=== PATIENT | male | born 1945 | race Two or more races ===

== ENCOUNTER 2018-05-01 20:20 | Inpatient (IN) | payer MEDICARE, MEDICAID ==
[~2018-05-01] VITALS: Ht 172.7 cm; Wt 86.2 kg
[2018-05-01 20:58] LABS: BASOPHILS % 0.2 % (0.0-2.0); EOSINOPHILS % 0.2 % (0.0-5.0); HEMATOCRIT. 48.7 % (42.0-52.0); HEMOGLOBIN. 16.4 g/dL (14.0-18.0); MEAN CORPUSCULAR HEMOGLOBIN 32.2 pg (28.0-32.0); MEAN CORPUSCULAR VOLUME 95.6 fL (80.0-94.0); MEAN PLATELET VOLUME 7.4 fl (7.4-10.4); MONOCYTES % 1.6 % (2.0-8.0); PLATELET 291 x1000/uL (130-400); RED CELL DISTRIBUTION WIDTH 13.3 % (11.6-14.6)
[2018-05-01 21:04] LABS: CHLORIDE 106 mEq/L (98-107)
[2018-05-01 21:05] LABS: INR 1.1; PROTHROMBIN TIME 10.9 sec (9.1-11.1)
[2018-05-01 21:08] LABS: ETHANOL BLOOD < 10 mg/dL
[2018-05-01 21:11] LABS: LDL CHOLESTEROL 138 mg/dL (5-100)
[2018-05-01] MEDS ORDERED: ALTEPLASE IV STA (21:17)
[2018-05-01] MEDS ORDERED: ALTEPLASE 100MG/VIAL IV STA (21:17)
[2018-05-01] MEDS ORDERED: LABETALOL HCL 20MG/4ML CARPUJECT IV ONE (21:30)
[2018-05-01] MEDS ORDERED: LABETALOL 5MG/ML SYR 20 MG/4 ML SYRINGE IV ONE (21:30)
[2018-05-01 21:59] LABS: CLARITY URINE CLEAR (CLEAR); COLOR URINE YELLOW (YELLOW); KETONES URINE NEGATIVE (NEGATIVE); LEUKOCYTE ESTERASE URINE NEGATIVE (NEGATIVE); NITRITE URINE NEGATIVE (NEGATIVE); OCCULT BLOOD URINE 3+ (NEGATIVE); PH URINE 7.5 (4.5-8.0); PROTEIN URINE 3+ (NEGATIVE); SPECIFIC GRAVITY URINE 1.011 (1.005-1.030); UROBILINOGEN URINE 0.2 E.U./dL (0.2-1.0)
[2018-05-01 22:07] LABS: *AMPHETAMINES SCREEN URINE NEGATIVE (NEGATIVE); *BARBITURATES SCREEN URINE NEGATIVE (NEGATIVE)
[2018-05-01 22:08] LABS: *BENZODIAZEPINES SCREEN URINE NEGATIVE (NEGATIVE); *COCAINE SCREEN URINE NEGATIVE (NEGATIVE); CANNABINOID URINE SCREEN NEGATIVE (NEGATIVE); METHADONE URINE SCREEN NEGATIVE (NEGATIVE); OPIATES URINE SCREEN NEGATIVE (NEGATIVE); PHENCYCLIDINE URINE SCREEN NEGATIVE (NEGATIVE)
[2018-05-01] MEDS ORDERED: HYDRALAZINE 20MG/ML VIAL IV PRN (22:45)
[2018-05-01] MEDS ORDERED: CLONIDINE 0.1MG TABLET PO PRN (22:45)
[2018-05-01] MEDS ORDERED: ONDANSETRON HCL 4MG/2ML INJ IV PRN (22:45)
[2018-05-01] MEDS ORDERED: NITROGLYCERIN 0.4MG TABLET SL SL PRN (22:45)
[2018-05-01] MEDS ORDERED: ACETAMINOPHEN 650MG SUPP PR PRN (22:45)
[2018-05-01] MEDS ORDERED: NA PHOS,M-B/NA PHOS,DI-BA ENEMA 118ML PR PRN (22:45)
[2018-05-01] MEDS ORDERED: GUAIFENESIN 200MG/10ML SUGAR FREE UDC PO PRN (22:45)
[2018-05-01] MEDS ORDERED: MAGNESIUM/ALUMINUM HYDROXIDE/SIMETHICONE 30ML UDC PO PRN (22:45)
[2018-05-01] MEDS ORDERED: IPRATROPIUM/ALBUTEROL 0.5-3(2.5)MG/3ML NEB INH PRN (22:45)
[2018-05-01] MEDS ORDERED: IOHEXOL-350 100 ML BOTTLE ONE (23:07)
[2018-05-01] MEDS: DEXT 5%/LACTATED RINGERS 1,000 ML IV SCH (23:47)
[2018-05-02] VITALS (54 sets, daily range): BP systolic 122–177; BP diastolic 68–119
[2018-05-02] MEDS: METOPROLOL TARTRATE 25MG TABLET PO SCH ×2 (09:16→21:14)
[2018-05-02] MEDS: PANTOPRAZOLE SODIUM 40 MG/VIAL IV SCH (09:16)
[2018-05-02] MEDS: ASCORBIC ACID 500 MG TABLET PO SCH ×2 (09:17→21:13)
[2018-05-02] MEDS: DEXT 5%/LACTATED RINGERS 1,000 ML IV SCH (17:55)
[2018-05-02] MEDS: ATORVASTATIN CALCIUM 20MG TABLET PO SCH (21:13)
[2018-05-03] VITALS (49 sets, daily range): BP systolic 120–198; BP diastolic 53–113
[2018-05-03 06:14] LABS: BASOPHILS % 0.6 % (0.0-2.0); EOSINOPHILS % 2.3 % (0.0-5.0); HEMATOCRIT. 45.2 % (42.0-52.0); HEMOGLOBIN. 14.9 g/dL (14.0-18.0); LYMPHOCYTES % 20.1 % (20.0-50.0); MEAN CORPUSCULAR HEMOGLOBIN 31.7 pg (28.0-32.0); MONOCYTES % 11.5 % (2.0-8.0); NEUTROPHILS % 65.5 % (40.0-76.0); PLATELET 291 x1000/uL (130-400); RED BLOOD CELL COUNT 4.71 mill/uL (4.7-6.1); RED CELL DISTRIBUTION WIDTH 13.5 % (11.6-14.6)
[2018-05-03 06:25] LABS: CHLORIDE 106 mEq/L (98-107)
[2018-05-03] MEDS: DEXT 5%/LACTATED RINGERS 1,000 ML IV SCH (07:51)
[2018-05-03] MEDS: CLOPIDOGREL 75MG TABLET PO SCH (08:47)
[2018-05-03] MEDS: PANTOPRAZOLE SODIUM 40 MG/VIAL IV SCH (08:47)
[2018-05-03] MEDS: ENOXAPARIN 40MG/0.4ML SYR SUBCUT SCH (08:48)
[2018-05-03] MEDS: DOCUSATE SODIUM 100MG CAPSULE PO PRN ×2 (08:48→21:17)
[2018-05-03] MEDS: ASCORBIC ACID 500 MG TABLET PO SCH ×2 (08:48→21:17)
[2018-05-03] MEDS: METOPROLOL TARTRATE 25MG TABLET PO SCH ×2 (08:49→21:17)
[2018-05-03] MEDS: LISINOPRIL 40MG TABLET PO SCH (13:51)
[2018-05-03] MEDS: ATORVASTATIN CALCIUM 20MG TABLET PO SCH (21:17)
[2018-05-04] VITALS (14 sets, daily range): BP systolic 91–144; BP diastolic 44–83
[2018-05-04] MEDS: CLOPIDOGREL 75MG TABLET PO SCH (08:38)
[2018-05-04] MEDS: ASCORBIC ACID 500 MG TABLET PO SCH ×2 (08:38→20:27)
[2018-05-04] MEDS: PANTOPRAZOLE SODIUM 40 MG/VIAL IV SCH (08:38)
[2018-05-04] MEDS: ENOXAPARIN 40MG/0.4ML SYR SUBCUT SCH (08:39)
[2018-05-04] MEDS: METOPROLOL TARTRATE 25MG TABLET PO SCH ×2 (08:39→20:28)
[2018-05-04] MEDS: LISINOPRIL 40MG TABLET PO SCH (08:39)
[2018-05-04] MEDS ORDERED: LISINOPRIL 40MG TABLET PO SCH (09:00)
[2018-05-04] MEDS ORDERED: METO25TA6 PO (09:10)
[2018-05-04 10:38] LABS: BASOPHILS % 0.6 % (0.0-2.0); EOSINOPHILS % 1.3 % (0.0-5.0); HEMATOCRIT. 48.4 % (42.0-52.0); HEMOGLOBIN. 16.4 g/dL (14.0-18.0); MEAN CORPUSCULAR HEMOGLOBIN 32.1 pg (28.0-32.0); MEAN CORPUSCULAR VOLUME 95.1 fL (80.0-94.0); MEAN PLATELET VOLUME 7.5 fl (7.4-10.4); NEUTROPHILS % 68.1 % (40.0-76.0); PLATELET 315 x1000/uL (130-400); RED BLOOD CELL COUNT 5.09 mill/uL (4.7-6.1)
[2018-05-04 10:53] LABS: CHLORIDE 107 mEq/L (98-107)
[2018-05-04] MEDS: ATORVASTATIN CALCIUM 20MG TABLET PO SCH (20:28)
[2018-05-05] MEDS ORDERED: FAMOTIDINE 20MG TABLET PO SCH (09:00)
== END 2018-05-04 23:10 | disposition short-term general hospital (02) | DRG 46 ==
LOC: ER 20:20 → MICUSO 22:46 → EDBEDREQ 22:49 → EDBEDREQSVC 22:49 → EDBEDREQTM 22:49 → ENRESERV 05-02 03:11 → 8WST 05-04 03:55
PROVIDERS: ADMIT Internal Medicine; ATTEND Internal Medicine
DX: I66.8 Occlusion and stenosis of other cerebral arteries (principal); G92 Toxic encephalopathy; I48.1 Persistent atrial fibrillation; E44.1 Mild protein-calorie malnutrition; I11.9 Hypertensive heart disease without heart failure; E83.51 Hypocalcemia; E78.00 Pure hypercholesterolemia, unspecified; E78.5 Hyperlipidemia, unspecified; I48.2 Chronic atrial fibrillation; M10.9 Gout, unspecified
CPT/HCPCS: 36415; 70496; 70498; 70551; 71045; 80048; 80305; 83036; 83721; 83735; 84484; 93005; 93306; 93880; 96374; 96375; 97112; 97116; 97163; 97166; 99291; C9113; G0482; J0360; J1650; J2997; J3490; Q9967